=== PATIENT | male | born 1950 | race Caucasian/White ===

== ENCOUNTER → 2022-04-27 10:35 | Outpatient (CLI) | payer OTHER, SELFPAY ==
--- NOTE | ~2022-04-27 | CT_ITS ---
EXAMINATION: CT lung screening DATE: 04/27/2022 10:52 INDICATION: Lung cancer screening TECHNIQUE: Computed tomography (CT) of the chest was performed without intravenous contrast. Addition al 3D reconstructions utilizing coronal maximum intensity projection (MIP) were performed. Automated exposure control and iterative reconstruction technique were employed. The dose-length product was 13 9.85 mGy-cm. COMPARISON: 03/20/2019 FINDINGS: Mild emphysema. Mild biapical pleural-parenchymal scarring. Several small calcified pulmonary nodules the majority in a cluster in the right upper lobe along with calcified right hilar and mediastinal l ymph nodes and multiple splenic calcifications also consistent with old granulomatous disease. No pne umonia, pulmonary edema or pleural effusion. Heart size is normal. Atherosclerotic coronary artery ca lcific location. Aortic valve calcific lesion. No pericardial effusion. Thoracic aorta is normal in c aliber. No pathologically enlarged thoracic lymphadenopathy. Mild cervicothoracic levocurvature with severe lower cervical spondylosis. Mild thoracic dextrocurvature with mild to moderate spondylosis. IMPRESSION: 1. Lung-RADS category 1: Negative. Continue annual screening with noncontrast low-dose chest CT in 12 months. Reviewed, dictated and finalized at location [facility]. IMPRESSION: 1. Lung-RADS category 1: Negative. Continue annual screening with noncontrast l ow-dose chest CT in 12 months.
== END ==
PROVIDERS: PCP Family Medicine Adolescent Medicine; Visit Provider Family Medicine Adolescent Medicine
DX: Z12.2 Encounter for screening for malignant neoplasm of respiratory organs (principal); Z87.891 Personal history of nicotine dependence
CPT/HCPCS: 71271

== ENCOUNTER → 2023-07-19 08:16 | Outpatient (CLI) | payer OTHER, SELFPAY ==
--- NOTE | ~2023-07-19 | CT_ITS ---
CT Scan of the Chest without Contrast: Clinical Indication: Lung cancer screening, smoking history Technique: Contiguous sections were acquired throughout the chest without intravenous contrast. Dose reduction technique was used on this scan by utilizing automated exposure control and iterative recon struction technique. The dose-length product (DLP) was 155.33 mGy-cm. COMPARISON: 04/27/2022 and 03/20/2019 Findings: There is no evidence of any significant mediastinal, hilar or axillary lymphadenopathy. Calcified med iastinal lymph nodes are present. There are atherosclerotic ossifications of the aorta and coronary a rteries. There is no evidence of pleural or pericardial effusion. There are calcified granulomas noted in the right upper lobe. There is mild paraseptal emphysema. The re is mild biapical scarring. Images through the upper abdomen reveal no abnormalities. Impression: Lung RADS 2: Benign appearance. 12 month follow-up screening CT advised. Reviewed, dictated and finalized at [facility]. Impression: Lung RADS 2: Benign appearance. 12 month follow-up screening CT advised.
== END ==
PROVIDERS: PCP Family Medicine Adolescent Medicine; Visit Provider Family Medicine Adolescent Medicine
DX: Z12.2 Encounter for screening for malignant neoplasm of respiratory organs (principal); Z87.891 Personal history of nicotine dependence
CPT/HCPCS: 71271

== ENCOUNTER 2024-07-22 08:42 | Outpatient (CLI) | payer OTHER, SELFPAY ==
--- NOTE | ~2024-07-22 | CT_ITS ---
EXAMINATION:CT lung screening DATE: 07/22/2024 09:06 INDICATION: Nicotine dependence, cigarettes. Current smoker with 40 pack year history. TECHNIQUE: Computed tomography (CT) of the chest was performed without intravenous contrast. Automate d exposure control and iterative reconstruction technique were employed. The dose-length product (DLP ) was 142.18 mGy-cm. COMPARISON: Chest CT 07/19/2023 FINDINGS: There is mild emphysema. There is stable mild scarring at the lung apices. Calcified right lung nodules and calcified mediastinal lymph nodes are consistent with old granulomatous disease. The re is mild atelectasis bilaterally. No pleural effusion. The heart size is normal. There are coronary artery calcifications. No pericardial effusion. Calcifications in the liver and spleen are consisten t with old granulomatous disease. There is moderate thoracic spondylosis. IMPRESSION: 1. Lung-RADS category 2: Benign appearance or behavior. Continue annual screening with noncontrast lo w-dose chest CT in 12 months. Reviewed, dictated and finalized at location [facility]. IMPRESSION: 1. Lung-RADS category 2: Benign appearance or behavior. Continue annual screeni ng with noncontrast low-dose chest CT in 12 months.
== END 2024-07-22 08:43 | disposition home or self-care (01) ==
PROVIDERS: PCP Family Medicine Adolescent Medicine; Visit Provider Family Medicine Adolescent Medicine
DX: Z12.2 Encounter for screening for malignant neoplasm of respiratory organs (principal); F17.218 Nicotine dependence, cigarettes, with other nicotine-induced disorders
CPT/HCPCS: 71271

== ENCOUNTER 2024-09-02 09:25 | Outpatient (CLI) | payer OTHER, SELFPAY ==
--- NOTE | ~2024-09-02 | US_ITS ---
US arterial ankle brachial ind INDICATION: Bilateral lower extremity weakness TECHNIQUE: Segmental pressures and plethysmographic and Doppler waveforms of the brachial and lower e xtremity arteries were obtained. COMPARISON: None. FINDINGS: Right and left brachial artery pressures of 160 mm Hg and 150 mm Hg, respectively, are concordant (no rmal difference <= 30 mmHg). The right ankle-brachial index (FRANCOISE) is 1.15 (normal >= 0.9-1.0). The right great toe-brachial index (TBI) is 0.57 (normal >= 0.60). The left FRANCOISE is 1.13. The left TBI is 0.68. IMPRESSION: 1. Normal ankle-brachial indices. 2: Mildly decreased right toe brachial index consistent with peripheral arterial disease. Reviewed, dictated and finalized at location [facility]. IMPRESSION: 1. Normal ankle-brachial indices. 2: Mildly decreased right toe brachial index consistent with peripheral arteri al disease.
== END 2024-09-02 09:26 | disposition home or self-care (01) ==
LOC: ANHIMG 09:27
PROVIDERS: PCP Family Medicine Adolescent Medicine; Visit Provider Family Medicine Adolescent Medicine
DX: R53.1 Weakness (principal); R09.89 Other specified symptoms and signs involving the circulatory and respiratory systems; I70.0 Atherosclerosis of aorta
CPT/HCPCS: 93922

== ENCOUNTER 2025-08-20 08:34 | Outpatient (CLI) | payer OTHER, SELFPAY ==
--- NOTE | ~2025-08-20 | CT_ITS ---
EXAMINATION:CT lung screening DATE: 08/20/2025 08:58 INDICATION: Personal history of nicotine dependence. TECHNIQUE: Computed tomography (CT) of the chest was performed without intravenous contrast. Automated exposure control and iterative reconstruction technique were employed. The dose-length product (DLP) was 121.38 mGy-cm. COMPARISON: Chest CT 07/22/2024 FINDINGS: There is mild emphysema. There is mild scarring at the lung apices. Calcified right lung nodules and calcified mediastinal lymph nodes are consistent with old granulomatous disease. There is a 3 mm nodule in left lower lobe. There is chronic mild peripheral septal thickening in the lungs. No pleural effusion. The heart size is normal. There are coronary artery calcifications. No pericardial effusion. Calcifications in the spleen are consistent with old granulomatous disease. There is mild bilateral gynecomastia. There are old healed left rib fractures. There is severe cervical spondylosis and mild thoracic spondylosis. IMPRESSION: 1. Lung-RADS category 2: Benign appearance or behavior. Continue annual screening with noncontrast low-dose chest CT in 12 months. Reviewed, dictated and finalized at location [facility]. IMPRESSION: 1. Lung-RADS category 2: Benign appearance or behavior. Continue annual screeni ng with noncontrast low-dose chest CT in 12 months.
== END 2025-08-20 08:35 | disposition home or self-care (01) ==
LOC: MICIMG 08:35
PROVIDERS: PCP Family Medicine Adolescent Medicine; Visit Provider Family Medicine Adolescent Medicine
DX: Z12.2 Encounter for screening for malignant neoplasm of respiratory organs (principal); F17.218 Nicotine dependence, cigarettes, with other nicotine-induced disorders
CPT/HCPCS: 71271